=== PATIENT | male | born 1980 | race Caucasian/White ===

== ENCOUNTER → 2020-10-09 | Outpatient (CLI) | payer BC ==
--- NOTE | 2020-10-10 00:03 | MR ---
EXAMINATION TYPE: MR knee RT wo con DATE OF EXAM: 10/09/2020 COMPARISON: None HISTORY: Right inner knee pain, pain behind knee, painful kneecap, locking, and swelling for 5 years. Multiplanar multiecho imaging of the right knee without contrast. The anterior and posterior cruciate ligaments appear intact. There is small knee joint effusion. Ther e is increased signal in the proximal tibia at the base of the tibial spines that is poorly marginate d and measures 1.5 cm. This is consistent with a bone bruise. No fracture line seen. There is also 12 mm rounded area of fluid signal in the posterior aspect of the tibial spines consistent with a degen erative cyst. The collateral ligaments appear intact. There is horizontal tear through the anterior horn of the lat eral meniscus. This extends to the superior surface. There is some increased signal within the box stacker ior horn medial meniscus without extension to the articular surface. The patella is intact. There is some subcutaneous edema over the anterior proximal tibia. IMPRESSION: Horizontal tear anterior horn of the lateral meniscus. There is also vertical tear through the anteri or horn of the lateral meniscus. There is intrasubstance tear posterior horn medial meniscus. No evidence of ligamentous tear. Small joint effusion. Bone bruise and degenerative cyst formation at the base of the tibial spines.
== END | disposition home or self-care (01) ==
LOC: RADMRIMAIN 11:03
PROVIDERS: ATTEND Orthopaedic Surgery
DX: M23.321 Other meniscus derangements, posterior horn of medial meniscus, right knee (principal); M23.341 Other meniscus derangements, anterior horn of lateral meniscus, right knee

== ENCOUNTER → 2021-01-18 | Outpatient (CLI) | payer BC ==
[2021-01-18 10:13] LABS: Basophils # (A) 0.1 k/uL (0-0.2); Basophils % (A) 1 %; Eosinophils # (A) 0.1 k/uL (0-0.7); Eosinophils % (A) 1 %; HCT 48.3 % (39.0-53.0); HGB 15.8 gm/dL (13.0-17.5); Lymphocytes # (A) 1.9 k/uL (1.0-4.8); Lymphocytes % (A) 26 %; MCH 28.5 pg (25.0-35.0); MCHC 32.7 g/dL (31.0-37.0); Mean Platelet Volume 8.5; Monocytes # (A) 0.4 k/uL (0-1.0); Monocytes % (A) 6 %; Neutrophils # (A) 4.7 k/uL (1.3-7.7); Neutrophils % (A) 64 %; Platelet Count 221 k/uL (150-450); RBC 5.56 m/uL (4.30-5.90); RDW 12.9 % (11.5-15.5); WBC 7.4 k/uL (3.8-10.6)
[2021-01-18 10:40] LABS: Potassium 4.4 mmol/L (3.5-5.1)
== END | disposition home or self-care (01) ==
LOC: LABPAT 09:46
PROVIDERS: ATTEND Orthopaedic Surgery
DX: Z01.812 Encounter for preprocedural laboratory examination (principal); M23.91 Unspecified internal derangement of right knee; I10 Essential (primary) hypertension
CPT/HCPCS: 80051; 85025; 93005

== ENCOUNTER 2021-01-30 09:49 | Day surgery (SDC) | payer BC ==
[2021-01-27 14:45] VITALS: BMI 47.3
--- NOTE | 2021-01-29 20:23 | HP ---
HISTORY AND PHYSICAL DATE OF SURGERY: 01/30/2021 Braden Manley is a 40-year-old patient seen with progressive right knee pain. We discussed options for treatment. He elected to proceed with right knee arthroscopy. Consent was obtained. PAST MEDICAL HISTORY: Gastroesophageal reflux disease. PAST SURGICAL HISTORY: Lumbar spine surgery, sinus surgery. DAILY MEDICATIONS: Celebrex. ALLERGIES: NONE. SOCIAL HISTORY: He denies tobacco use. PHYSICAL EVALUATION OF THE RIGHT KNEE: Range of motion is zero to 125. Mild effusion. Tenderness along the medial and lateral joint lines. Positive medial Jaqueline's. Positive lateral Jaqueline's. Ligaments stable. Hip rotation without pain. Distal neurovascular exam intact. Right knee radiographs reveal mild osteoarthritis. MRI right knee revealed lateral meniscal tear. IMPRESSION: Internal derangement of right knee with lateral meniscal tear. PLAN: Right knee arthroscopy with partial meniscectomy and debridement. MMODL / IJN: [id number] /
[~2021-01-30 09:49] MED LIST: LACTATED RINGERS 1,000 ML IV SCH; LIDOCAINE 1% (10MG/ML) FOR IV START INTRADERMA PRN; ONDANSETRON 4 MG/2 ML VIAL IVP ONE; ceFAZolin 3 GM in SODIUM CHLORIDE 0.9% 100 ML IVPB PRN
[2021-01-30] MEDS ORDERED: BUPIVACAINE (PF) 0.25% 30 ML VIAL SQ ONE (11:13)
[2021-01-30] MEDS ORDERED: SUCCINYLCHOLINE CHLORIDE VIAL 200 MG/10 ML VIAL IV ONE (11:16)
[2021-01-30] MEDS ORDERED: PROPOFOL 10 MG/ML 20 ML VIAL IV ONE (11:16)
[2021-01-30] MEDS ORDERED: .fentaNYL (PF) 50 MCG/ML AMP ONE (11:16)
[2021-01-30] MEDS ORDERED: MIDAZOLAM 2 MG/2 ML VIAL ONE (11:16)
[2021-01-30] MEDS: HYDROmorphone 0.5 MG/0.5 ML SYRINGE IVP PRN ×4 (12:17→12:41)
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
[2021-01-30 12:23] VITALS: TEMP 97
[2021-01-30] MEDS ORDERED: KETOROLAC 30 MG/ML 1 ML VIAL ONE (12:32)
[2021-01-30] MEDS ORDERED: KETOROLAC 15 MG/ML 1 ML VIAL IVP ONE (12:34)
[2021-01-30 13:04] VITALS: RESP 18
[2021-01-30] MEDS ORDERED: HYDROcodone/APAP 7.5-325MG 1 EACH TAB ONE (13:16)
[2021-01-30] MEDS ORDERED: HYDROcodone/APAP 7.5-325MG 1 EACH TAB PO ONE (13:17)
[2021-01-30 13:39] VITALS: BP 140/79; PULSE 72
== END 2021-01-30 14:20 | disposition home or self-care (01) ==
LOC: OR 09:49
PROVIDERS: ATTEND Orthopaedic Surgery
DX: S83.281A Other tear of lateral meniscus, current injury, right knee, initial encounter (principal); M94.261 Chondromalacia, right knee; M65.9 Synovitis and tenosynovitis, unspecified; E66.01 Morbid (severe) obesity due to excess calories; K21.9 Gastro-esophageal reflux disease without esophagitis; Z79.899 Other long term (current) drug therapy
CPT/HCPCS: 29879; 29881; 29876; J2250; J0330; J0690; J2405; J3010; J1885; J2704; J1170

== ENCOUNTER → 2021-12-16 | Outpatient (CLI) | payer BC ==
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
== END | disposition home or self-care (01) ==
LOC: SLEEP 14:30
PROVIDERS: ATTEND Internal Medicine Critical Care Medicine
DX: G47.19 Other hypersomnia (principal); E66.9 Obesity, unspecified; M19.90 Unspecified osteoarthritis, unspecified site; R06.83 Snoring
CPT/HCPCS: 99211

== ENCOUNTER 2022-01-05 20:14 | Emergency (ER) | payer BC ==
[2022-01-05 20:23] VITALS: TEMP 99
[2022-01-05 21:43] LABS: Basophils # (A) 0.1 k/uL (0-0.2); Basophils % (A) 1 %; Eosinophils # (A) 0.1 k/uL (0-0.7); Eosinophils % (A) 1 %; HCT 44.8 % (39.0-53.0); HGB 15.3 gm/dL (13.0-17.5); Lymphocytes # (A) 1.9 k/uL (1.0-4.8); Lymphocytes % (A) 16 %; MCH 29.2 pg (25.0-35.0); MCHC 34.1 g/dL (31.0-37.0); MCV 85.6 fL (80.0-100.0); Mean Platelet Volume 9.5; Monocytes # (A) 0.8 k/uL (0-1.0); Monocytes % (A) 6 %; Neutrophils # (A) 9.2 k/uL (1.3-7.7); Neutrophils % (A) 75 %; Platelet Count 230 k/uL (150-450); RBC 5.23 m/uL (4.30-5.90); RDW 12.8 % (11.5-15.5); WBC 12.3 k/uL (3.8-10.6)
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
--- NOTE | 2022-01-05 22:00 | XR ---
EXAMINATION TYPE: XR ankle complete RT DATE OF EXAM: 01/05/2022 COMPARISON: NONE HISTORY: Pain TECHNIQUE: 3 views FINDINGS: There is plantar and Achilles calcaneal spurring. Ankle mortise is anatomic. There is no fr acture nor dislocation. IMPRESSION: Calcaneal spurring. No fracture seen.
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
[2022-01-05 22:21] VITALS: BP 126/88; PULSE 72; RESP 18
[2022-01-05 22:21] LABS: ALT 29 U/L (4-49); African American GFR (CKD) >90 (>60 ml/min/1.73 sqM); Anion Gap 11 mmol/L; Blood Urea Nitrogen 17 mg/dL (9-20); Calcium 9.2 mg/dL (8.4-10.2); Carbon Dioxide 23 mmol/L (22-30); Chloride 103 mmol/L (98-107); Glucose 81 mg/dL (74-99); Non-African American GFR(CKD) >90 (>60 ml/min/1.73 sqM); Sodium 137 mmol/L (137-145); Total Bilirubin 0.7 mg/dL (0.2-1.3)
[2022-01-05 22:29] LABS: AST 42 U/L (17-59); Albumin 4.6 g/dL (3.5-5.0); Alkaline Phosphatase 89 U/L (38-126); Potassium 4.7 mmol/L (3.5-5.1); Total Protein 7.6 g/dL (6.3-8.2)
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
== END 2022-01-05 23:09 | disposition home or self-care (01) ==
LOC: EC 20:14
DX: T21.21XA Burn of second degree of chest wall, initial encounter (principal); J68.0 Bronchitis and pneumonitis due to chemicals, gases, fumes and vapors; Z79.899 Other long term (current) drug therapy
CPT/HCPCS: 36415; 70450; 71046; 72110; 72125; 80053; 82375; 85025; 99285

== ENCOUNTER → 2022-08-11 | Outpatient (CLI) | payer BC ==
--- NOTE | 2022-08-11 15:56 | P.PN ---
Progress Note - Text Progress Note Date: 08/11/22 39-year-old male patient coming in for a compliance check regarding obstructive sleep apnea. The patient was diagnosed having Moderate to severe obstructive sleep apnea with an AHI of 23 and the patient was given a CPAP machine a pressure of 15 cm of water. Note that the patient also has undergone a previous UPPP procedure. The patient was symptomatic from his disease. The patient started using his CPAP and currently is very compliant. Based on the compliance data that has been collected between 07/12/2022 and 08/10/2022, the patient has used the machine more than 4 hours 90% of the time. The patient is averaging about 7 hours and 12 minutes of CPAP use per night. His AHI is down to 0.51 on treatment. His leak site quite elevated at 65 L. His currently using a fullface mask and is also using the air fit N 20 nasal mask. The patient is improved significantly. No major hypersomnia or sleepiness during the day. He seems to be committed to long-term CPAP therapy. Is also committed to losing weight. His sleep quality is improved. [place] subsided. He seems to much more awake. He does not fall asleep during day-to-day activities and he is feeling good for now and use quite content with the treatment. His current vital signs are as follows his blood pressure is 136/87 with a pulse of 68 and the respiration of 16 and his [place] score is down to 2. Saturations 97% on room air oxygen and the weight is 365 pounds. The patient appeared well nourished and normally developed. Vital signs as documented. Head exam is unremarkable. No scleral icterus or corneal arcus noted. Neck is without jugular venous distension, thyromegaly, or carotid bruits. Carotid upstrokes are brisk bilaterally. Lungs are clear to auscultation and percussion. Cardiac exam reveals the PMI to be normally sized and situated. Rhythm is regular. First and second heart sounds normal. No murmurs, rubs or gallops. Abdominal exam reveals normal bowel sounds, no masses, no organomegaly and no aortic enlargement. Extremities are nonedematous and both femoral and pedal pulses are normal.Examination of the skin revealed no evidence of significant rashes, suspicious appearing nevi or other concerning lesions.Neurologically, the patient is awake and alert and the patient does not have any focal neurological deficit. Cranial nerves are essentially intact. assessment Symptomatic obstructive sleep apnea with an AHI of 23 and the patient is currently on CPAP at a pressure of 15 cm of water. Previous UPPP for obstructive sleep apnea. Migraines Chronic hypersomnia improved and the patient's [place] score is down to 2 Obesity, Body mass index is 54.7 Degenerative arthritis Plan We'll proceed with CPAP therapy. We'll continue treatment as the patient is committed. We'll make some adjustments as the patient is having excessive leaks. I'm going to switch this patient today APAP mode pressures of 7/14 cm of water and will evaluate him in 6 months time to obtain a P95th percentile pressure and decide accordingly whether to keep him on APAP or change in to a fixed CPAP pressure. I offered them the dreamware nasal mask as an alternative for his current mask. He was quite excited about it. He is also into was then losing weight. We'll continue to follow.
== END ==
LOC: 3 N SLEEP 15:04
PROVIDERS: ATTEND Internal Medicine Critical Care Medicine
DX: G47.33 Obstructive sleep apnea (adult) (pediatric) (principal); Z99.89 Dependence on other enabling machines and devices; G43.909 Migraine, unspecified, not intractable, without status migrainosus; E66.9 Obesity, unspecified; Z68.43 Body mass index [BMI] 50.0-59.9, adult; M19.90 Unspecified osteoarthritis, unspecified site
CPT/HCPCS: 99212

== ENCOUNTER → 2023-02-09 | Outpatient (CLI) | payer BC ==
--- NOTE | 2023-02-09 16:26 | P.PN ---
Progress Note - Text Progress Note Date: 02/09/23 This is a 41-year-old male patient is coming in for a follow-up regarding his JAYDEN treatment. The patient was diagnosed having symptomatic OBSTRUCTIVE sleep apnea which is of a moderate in severity with an AHI of 23. The patient has undergone previous UPPP and the patient was being treated with a CPAP pressure of 15 cm of water. During his last evaluation, switch this patient for an APAP mode and I set him to a pressure setting of 7/14 cm of water. I also switched him to a dreamware under the nose nasal mask. The patient is feeling great. He is unfortunately gaining weight. His current weight is up to 386 pounds. Nevertheless, his JAYDEN treatment is very successful. Based on a 30 day compliancy, the patient has been averaging on 6.8 hours of CPAP use per night. Overall CPAP compliance is more than 80%. His leak is in order of 31 L/m and his AHI is down to 0.5. His average pressure delivered by the CPAP machines around 12.8 cm of water. No snoring. No sleep fragmentation. No hypersomnia or sleepiness. No other new complaints otherwise for now BP is 124/83 with a pulse of 78 and the respiration of 16 with a weight of 386. Temperature is 98.3. For score is at 2. Weight is 386. Gen. appearance the patient is calm and comfortable, obese, not in acute distress. The patient is a Mallampati class IV with significant crowding of posterior pharynx.The patient appeared well nourished and normally developed. Vital signs as documented. Head exam is unremarkable. No scleral icterus or corneal arcus noted. Neck is without jugular venous distension, thyromegaly, or carotid bruits. Carotid upstrokes are brisk bilaterally. Lungs are clear to auscultation and percussion. Cardiac exam reveals the PMI to be normally sized and situated. Rhythm is regular. First and second heart sounds normal. No murmurs, rubs or gallops. Abdominal exam reveals normal bowel sounds, no masses, no organomegaly and no aortic enlargement. Extremities are nonedematous and both femoral and pedal pulses are normal.Examination of the skin revealed no evidence of significant rashes, suspicious appearing nevi or other concerning lesions.Neurologically, the patient is awake and alert and the patient does not have any focal neurological deficit. Cranial nerves are essentially intact. Assessment Symptomatic JAYDEN with an AHI of 23. The patient is undergoing successful APAP therapy pressures of 7/14 cm of water. The patient undergone previous UPPP. He felt surgical intervention and the patient is currently doing very well on CPAP therapy. Obesity with interval weight gain. Current body weight is up to 386 pounds Migraines, currently inactive and stable Degenerative arthritis Plan Encourage weight loss and the patient is going to work with his primary care regarding medical weight loss. The patient will continue CPAP therapy the same pressures of 7/14 cm of water. The mask is going to be renewed and the patient is going to be maintained on a dreamware under the nose mask. This will be a medium wide size. Treatment is very successful. The patient is compliant. The patient will see me back in a year's time and follow-up.
== END ==
LOC: 3 N SLEEP 15:32
PROVIDERS: ATTEND Internal Medicine Critical Care Medicine
DX: G47.33 Obstructive sleep apnea (adult) (pediatric) (principal); G43.909 Migraine, unspecified, not intractable, without status migrainosus; E66.9 Obesity, unspecified; M19.90 Unspecified osteoarthritis, unspecified site
CPT/HCPCS: 99212

== ENCOUNTER 2023-10-24 09:47 | Observation (INO) | payer BC ==
--- NOTE | 2023-10-24 10:07 | ED ---
General Adult HPI - General Chief complaint: Chest Pain Stated complaint: Chest pain,KASANDRA Time Seen by Provider: 10/24/23 09:53 Source: patient, family, RN notes reviewed Mode of arrival: ambulatory Limitations: no limitations - History of Present Illness Initial comments: Patient is a 42-year-old male present to the emergency department with concerns with chest discomfort. Symptoms started yesterday evening. Family's Apple Watch showed heart rate up to 147 with concerns for A-fib. No history of A-fib. Patient states discomfort is mild at this time. Patient does have associated palpitations and dyspnea. No nausea or diaphoresis. No leg swelling or calf tenderness. No fever - Related Data Home Medications Medication Instructions Recorded Confirmed Celecoxib [CeleBREX] 100 mg PO DAILY 10/24/23 10/24/23 Fluconazole [Diflucan] 150 mg PO Q3D 10/24/23 10/24/23 Multivitamins, Thera [Multivitamin 1 tab PO DAILY 10/24/23 10/24/23 (formulary)] Omeprazole [PriLOSEC] 20 mg PO DAILY PRN 10/24/23 10/24/23 Allergies Allergy/AdvReac Type Severity Reaction Status Date / Time No Known Allergies Allergy Verified 10/24/23 11:49 Review of Systems ROS Statement: Those systems with pertinent positive or pertinent negative responses have been documented in the HPI. ROS Other: All systems not noted in ROS Statement are negative. Constitutional: Denies: fever Eyes: Denies: eye pain ENT: Denies: ear pain Respiratory: Reports: as per HPI, dyspnea. Denies: cough Cardiovascular: Reports: as per HPI, chest pain, palpitations Endocrine: Denies: fatigue Gastrointestinal: Denies: abdominal pain Genitourinary: Denies: dysuria Musculoskeletal: Denies: back pain Skin: Denies: rash Neurological: Denies: weakness Past Medical History Additional Past Medical History / Comment(s): Obesity, previous history of UPPP, degenerative arthritis, history of migraines, previous history of Covid 19 infection Additional Past Surgical History / Comment(s): UPPP, microdiscectomy, right arthroscopic surgery for meniscal repair Past Psychological History: No Psychological Hx Reported General Exam Limitations: no limitations General appearance: alert, in no apparent distress Head exam: Present: normocephalic Eye exam: Present: normal appearance Neck exam: Present: normal inspection Respiratory exam: Present: normal lung sounds bilaterally Cardiovascular Exam: Present: tachycardia, irregular rhythm, normal heart sounds Expanded Peripheral pulses: 2+: Radial (R), Radial (L), Dorsalis Pedis (R), Dorsalis Pedis (L) GI/Abdominal exam: Present: soft. Absent: tenderness Extremities exam: Present: normal inspection. Absent: pedal edema, calf tenderness Neurological exam: Present: alert Psychiatric exam: Present: normal affect, normal mood Skin exam: Present: normal color Course Vital Signs 10/24/23 10/24/23 10/24/23 09:48 10:11 10:30 Temperature 98.3 F Pulse Rate 92 123 H 172 H Pulse Rate [ 123 H [place]ry[place] ] Respiratory 16 20 18 Rate Blood Pressure 119/90 119/93 130/86 O2 Sat by Pulse 99 97 96 Oximetry 10/24/23 10/24/23 10:57 12:05 Temperature Pulse Rate 150 H 94 Pulse Rate [ [place] ] Respiratory 18 18 Rate Blood Pressure 128/79 118/85 O2 Sat by Pulse 96 97 Oximetry EKG Findings - EKG Results: EKG: interpreted by ERMD (Left axis. Q wave V1. No acute ST change.) EKG shows: tachycardia, atrial fibrillation Medical Decision Making - Medical Decision Making Was pt. sent in by a medical professional or institution (, PA, SENIOR LIVING ADVISOR, urgent care, hospital, or [facility]...) When possible be specific @ -No Did you speak to anyone other than the patient for history (EMS, parent, family, police, friend...)? What history was obtained from this source @ - is present and helps provide history including heart rate on the Apple Watch Did you review nursing and triage notes (agree or disagree)? Why? @ -I reviewed and agree with nursing and triage notes Were old charts reviewed (outside hosp., previous admission, EMS record, old EKG, old radiological studies, urgent care reports/EKG's, [facility] records)? Report findings @ -No old charts were reviewed Differential Diagnosis (chest pain, altered mental status, abdominal pain women, abdominal pain men, vaginal bleeding, weakness, fever, dyspnea, syncope, headache, dizziness, GI bleed, back pain, seizure, CVA, palpatations, mental health, musculoskeletal)? @ -Differential Palpitations Ventricular arrhythmias, atrial arrhythmias, myocardial infarction, anemia, thyrotoxicosis, electrolyte imbalance, hypokalemia, pulmonary embolism, pulmo nary disease, drugs, alcohol, anxiety, stress.... This is not meant to be an all-inclusive list. EKG interpreted by me (3pts min.). @ -As above X-rays interpreted by me (1pt min.). @ -Chest x-ray shows mild interstitial changes CT interpreted by me (1pt min.). @ -None done U/S interpreted by me (1pt. min.). @ -None done What testing was considered but not performed or refused? (CT, X-rays, U/S, labs)? Why? @ -None What meds were considered but not given or refused? Why? @ -None Did you discuss the management of the patient with other professionals (professionals i.e. , PA, SENIOR LIVING ADVISOR, lab, RT, psych nurse, social work supervisor, vacuum evaporation operator, teacher, business development officer, family independence case manager)? Give summary @ -Case was discussed with Dr. Cabrera who will admit covering for Dr. Sanchez Was smoking cessation discussed for >3mins.? @ -No Was critical care preformed (if so, how long)? @ -31 minutes critical care time Were there social determinants of health that impacted care today? How? (Homelessness, low income, unemployed, alcoholism, drug addiction, transportation, low edu. Level, literacy, decrease access to med. care, snf, rehab)? @ -No Was there de-escalation of care discussed even if they declined (Discuss DNR or withdrawal of care, Hospice)? DNR status @ -No What co-morbidities impacted this encounter? (DM, HTN, Smoking, COPD, CAD, Cancer, CVA, ARF, Chemo, Hep., AIDS, mental health diagnosis, sleep apnea, morbid obesity)? @ -None Was patient admitted / discharged? Hospital course, mention meds given and route, prescriptions, significant lab abnormalities, going to OR and other pertinent info. @ -Patient presents with new onset A-fib with RVR. Heparin and Cardizem drips started. Patient reevaluated and updated. Patient will be admitted with cardiac consult. Admission orders written. Undiagnosed new problem with uncertain prognosis? @ -No Drug Therapy requiring intensive monitoring for toxicity (Heparin, Nitro, Insulin, Cardizem)? @ -On Cardizem drip. Heparin drip Were any procedures done? @ -No Diagnosis/symptom? @ -New onset A-fib with RVR Acute, or Chronic, or Acute on Chronic? @ -Default Uncomplicated (without systemic symptoms) or Complicated (systemic symptoms)? @ -Default Side effects of treatment? @ -No Exacerbation, Progression, or Severe Exacerbation? @ -No Poses a threat to life or bodily function? How? (Chest pain, [place], [place], pneumonia, PE, COPD, DKA, ARF, appy, cholecystitis, CVA, Diverticulitis, Homicidal, Suicidal, threat to staff... and all critical care pts) @ -Threat to cardiac function - Lab Data Result diagrams: 10/24/23 10:27 10/24/23 10: Lab Results 10/24/23 10/24/23 10/24/23 Range/Units 10:27 10:27 10:27 WBC 9.4 (3.8-10.6) k/uL RBC 5.89 (4.30-5.90) m/uL Hgb 16.5 (13.0-17.5) gm/dL Hct 50.5 (39.0-53.0) % MCV 85.8 (80.0-100.0) fL MCH 28.0 (25.0-35.0) pg MCHC 32.7 (31.0-37.0) g/dL RDW 13.4 (11.5-15.5) % Plt Count 261 (150-450) k/uL MPV 8.5 Neutrophils % 66 % Lymphocytes % 22 % Monocytes % 9 % Eosinophils % 1 % Basophils % 0 % Neutrophils # 6.2 (1.3-7.7) k/uL Lymphocytes # 2.1 (1.0-4.8) k/uL Monocytes # 0.8 (0-1.0) k/uL Eosinophils # 0.1 (0-0.7) k/uL Basophils # 0.0 (0-0.2) k/uL PT 9.7 L (10.0-12.5) sec INR 0.9 (<1.2) APTT 26.1 (22.0-30.0) sec Sodium 142 (137-145) mmol/L Potassium 4.6 (3.5-5.1) mmol/L Chloride 111 H (98-107) mmol/L Carbon Dioxide 24 (22-30) mmol/L Anion Gap 7 mmol/L BUN 18 (9-20) mg/dL Creatinine 0.83 (0.66-1.25) mg/dL Est GFR (CKD-EPI)AfAm >90 (>60 ml/min/1.73 sqM) Est GFR (CKD-EPI)NonAf >90 (>60 ml/min/1.73 sqM) Glucose 112 H (74-99) mg/dL Calcium 9.4 (8.4-10.2) mg/dL Magnesium 2.0 (1.6-2.3) mg/dL Total Bilirubin 0.5 (0.2-1.3) mg/dL AST 28 (17-59) U/L ALT 26 (4-49) U/L Alkaline Phosphatase 88 (38-126) U/L Troponin I (0.000-0.034) ng/mL Total Protein 7.2 (6.3-8.2) g/dL Albumin 4.4 (3.5-5.0) g/dL TSH 5.630 H (0.465-4.680) mIU/L Free T4 1.23 (0.78-2.19) ng/dL 10/24/23 Range/Units 10:27 WBC (3.8-10.6) k/uL RBC (4.30-5.90) m/uL Hgb (13.0-17.5) gm/dL Hct (39.0-53.0) % MCV (80.0-100.0) fL MCH (25.0-35.0) pg MCHC (31.0-37.0) g/dL RDW (11.5-15.5) % Plt Count (150-450) k/uL MPV Neutrophils % % Lymphocytes % % Monocytes % % Eosinophils % % Basophils % % Neutrophils # (1.3-7.7) k/uL Lymphocytes # (1.0-4.8) k/uL Monocytes # (0-1.0) k/uL Eosinophils # (0-0.7) k/uL Basophils # (0-0.2) k/uL PT (10.0-12.5) sec INR (<1.2) APTT (22.0-30.0) sec Sodium (137-145) mmol/L Potassium (3.5-5.1) mmol/L Chloride (98-107) mmol/L Carbon Dioxide (22-30) mmol/L Anion Gap mmol/L BUN (9-20) mg/dL Creatinine (0.66-1.25) mg/dL Est GFR (CKD-EPI)AfAm (>60 ml/min/1.73 sqM) Est GFR (CKD-EPI)NonAf (>60 ml/min/1.73 sqM) Glucose (74-99) mg/dL Calcium (8.4-10.2) mg/dL Magnesium (1.6-2.3) mg/dL Total Bilirubin (0.2-1.3) mg/dL AST (17-59) U/L ALT (4-49) U/L Alkaline Phosphatase (38-126) U/L Troponin I <0.012 (0.000-0.034) ng/mL Total Protein (6.3-8.2) g/dL Albumin (3.5-5.0) g/dL TSH (0.465-4.680) mIU/L Free T4 (0.78-2.19) ng/dL Critical Care Time Critical Care Time: Yes Disposition Clinical Impression: Atrial fibrillation with RVR Disposition: ADMITTED IP TO THIS HOSP Is patient prescribed a controlled substance at d/c from ED?: No Referrals: Sascha Cochran MD [Primary Care Provider] - 1-2 days Time of Disposition: 13:04
[2023-10-24] MEDS: ASPIRIN 81 MG PO STA (10:29)
[2023-10-24] MEDS: DILTIAZEM 125 MG in SODIUM CHLORIDE 0.9% 100 ML IV SCH (10:29)
[2023-10-24 10:34] LABS: Basophils % (A) 0 %; Eosinophils # (A) 0.1 k/uL (0-0.7); Eosinophils % (A) 1 %; HCT 50.5 % (39.0-53.0); HGB 16.5 gm/dL (13.0-17.5); Lymphocytes # (A) 2.1 k/uL (1.0-4.8); Lymphocytes % (A) 22 %; MCHC 32.7 g/dL (31.0-37.0); MCV 85.8 fL (80.0-100.0); Mean Platelet Volume 8.5; Monocytes # (A) 0.8 k/uL (0-1.0); Monocytes % (A) 9 %; Neutrophils # (A) 6.2 k/uL (1.3-7.7); Neutrophils % (A) 66 %; Platelet Count 261 k/uL (150-450); RBC 5.89 m/uL (4.30-5.90); RDW 13.4 % (11.5-15.5); WBC 9.4 k/uL (3.8-10.6)
[2023-10-24 10:48] LABS: ALT 26 U/L (4-49); AST 28 U/L (17-59); African American GFR (CKD) >90 (>60 ml/min/1.73 sqM); Albumin 4.4 g/dL (3.5-5.0); Alkaline Phosphatase 88 U/L (38-126); Anion Gap 7 mmol/L; Blood Urea Nitrogen 18 mg/dL (9-20); Calcium 9.4 mg/dL (8.4-10.2); Carbon Dioxide 24 mmol/L (22-30); Chloride 111 mmol/L (98-107); Glucose 112 mg/dL (74-99); Non-African American GFR(CKD) >90 (>60 ml/min/1.73 sqM); Potassium 4.6 mmol/L (3.5-5.1); Sodium 142 mmol/L (137-145); Total Bilirubin 0.5 mg/dL (0.2-1.3); Total Protein 7.2 g/dL (6.3-8.2)
[2023-10-24 10:59] LABS: INR 0.9 (<1.2); Partial Thromboplastin Time 26.1 sec (22.0-30.0); Prothrombin Time 9.7 sec (10.0-12.5)
[2023-10-24] MEDS: DILTIAZEM DRIP BOLUS FROM BAG 1 MG SOLN IV ONE (10:59)
--- NOTE | 2023-10-24 11:45 | XR ---
EXAMINATION TYPE: XR chest 2V DATE OF EXAM: 10/24/2023 COMPARISON: 01/05/2022 HISTORY: 42-year-old male dysrhythmia TECHNIQUE: PA and lateral views FINDINGS: Heart upper limits of normal in size. Interstitial and vascular prominence without consolidation or p leural effusion. IMPRESSION: Interstitial and vascular prominence. Correlate to exclude mild pulmonary vascular congestion.
[2023-10-24 11:57] LABS: T4, Free (Free Thyroxine) 1.23 ng/dL (0.78-2.19)
[2023-10-24] MEDS ORDERED: PANTOPRAZOLE 40 MG TABLET PO PRN ×2 (12:58→13:01)
[2023-10-24] MEDS: HEPARIN SODIUM 1,000 UN/ML (10ML VL) IV ONE (13:21)
[2023-10-24] MEDS: HEPARIN SOD,PORK IN 0.45% NACL 25,000 UNIT in 0.45% NACL 1 250ML.BAG IV SCH (13:24)
--- NOTE | 2023-10-24 15:34 | P.HPIM ---
History of Present Illness H&P Date: 10/24/23 Patient is a 42-year-old male with history of JAYDEN on CPAP presenting with palpitations and chest heaviness. He claims that he was in his usual state of health, started noticing chest heaviness while sitting on a chair last night. He claims that it is all over his chest, 5 out of 10, comes and goes. He also noted that he had rapid heart rate, irregular. He denies any lightheadedness, s hortness of breath, abdominal pain, urinary or bowel complaints. He denies any recent travel history. Family history of heart disease on maternal side. He is also had a rash on his right upper extremity concerning for ringworm, he was prescribed oral antifungals outpatient. He is only taken 1 dose so far. In the ED, temperature 98.3, pulse 123, respiratory 20, blood pressure 119/93, saturating at 97% on room air. WBC 9.4, hemoglobin 16.5, platelet 261, INR 0.9, APTT 26.1, sodium 142, potassium 4.6, creatinine 0.83, magnesium 2, TSH 5.63, free T41.23, troponin negative. EKG independently interpreted, atrial fibrillation with RVR. Chest x-ray independently interpreted, shows no opaciti es. Started on Cardizem drip in the ED, as well as heparin drip. Cardiology consulted. Pertinent positives and negatives as discussed in HPI, a complete review of systems was performed and all other systems are negative. Patient seen and examined at bedside. Vital signs reviewed General: nontoxic, no distress, appears at stated age, morbid obesity Derm: warm, dry, right upper extremity posterior aspect raised erythematous circular maculopapular rash with central clearing Head: atraumatic, normocephalic, symmetric Eyes: EOMI, no lid lag, anicteric sclera, pupils equal round reactive to light ENT: Nose and ears atraumatic Neck: No thyromegaly, supple Mouth: no lip lesion, mucus membranes moist Cardiovascular: S1S2 irregular, no murmur, no edema Lungs: clear to auscultation bilateral, no rhonchi, no rales, no wheeze, no accessory muscle use Abdominal: soft, nontender to palpation, no guarding, no appreciable organomegaly Ext: no gross muscle atrophy, muscle strength muscle strength 5 out of 5 in all 4 extremities, no contractures Neuro: CN II-XII grossly intact Psych: Alert, oriented, appropriate affect Assessment/Plan: Active: Atrial fibrillation with RVR -Continue telemetry monitoring -Echocardiogram pending -Continue Cardizem drip at 5 mg/h, titrate up if needed, monitor blood pressure closely -Continue heparin drip, monitor APTT and daily CBC -CHADSVASc score of 0 -Cardiology consulted, may benefit from cardioversion JAYDEN -Continue CPAP Tinea corporis -terbinafine 1% topical twice daily Morbid obesity, BMI 51.5 -Outpatient structured weight loss program The patient is admitted with an anticipated less than 2 midnight stay as observation status for evaluation of A-fib RVR. Surrogate decision-maker: Spouse CODE STATUS: Full code DVT prophylaxis: Heparin drip Anticipated discharge date: Pending clinical course Anticipated discharge place: Pending clinical course A total of 55 minutes was spent on the care of this complex patient more than 50% of the time was spent in counseling and care coordination. Past Medical History Additional Past Medical History / Comment(s): Obesity, previous history of UPPP, degenerative arthritis, history of migraines, previous history of Covid 19 infection Additional Past Surgical History / Comment(s): UPPP, microdiscectomy, right arthroscopic surgery for meniscal repair Past Psychological History: No Psychological Hx Reported Medications and Allergies Home Medications Medication Instructions Recorded Confirmed Type Celecoxib [CeleBREX] 100 mg PO DAILY 10/24/23 10/24/23 History Fluconazole [Diflucan] 150 mg PO Q3D 10/24/23 10/24/23 History Multivitamins, Thera [Multivitamin 1 tab PO DAILY 10/24/23 10/24/23 History (formulary)] Omeprazole [PriLOSEC] 20 mg PO DAILY PRN 10/24/23 10/24/23 History Allergies Allergy/AdvReac Type Severity Reaction Status Date / Time No Known Allergies Allergy Verified 10/24/23 11:49 Physical Exam Vitals: Vital Signs Temp Pulse Pulse Resp BP Pulse Ox 10/24/23 14:14 97.8 F 106 H 18 115/79 98 10/24/23 13:17 98 18 115/91 97 10/24/23 12:05 94 18 118/85 97 10/24/23 10:57 150 H 18 128/79 96 10/24/23 10:30 172 H 18 130/86 96 08/25/24 10:11 123 H 123 H 20 119/93 97 10/24/23 09:48 98.3 F 92 16 119/90 99 Intake and Output 10/23/23 10/24/23 10/24/23 22:59 06:59 14:59 Other: Weight 172.365 kg Results CBC & Chem 7: 10/24/23 10:27 10/24/23 10:27 Labs: Abnormal Lab Results - Last 24 Hours (Table) 10/24/23 10/24/23 Range/Units 10:27 10:27 PT 9.7 L (10.0-12.5) sec Chloride 111 H (98-107) mmol/L Glucose 112 H (74-99) mg/dL TSH 5.630 H (0.465-4.680) mIU/L
[2023-10-24] MEDS: HEPARIN SODIUM 1,000 UN/ML (10ML VL) IV PRN (19:34)
[2023-10-24] MEDS: TERBINAFINE 1% CREAM 15 GM TUBE TOPICAL SCH (21:50)
[2023-10-25 02:31] LABS: INR 0.9 (<1.2); Prothrombin Time 10.4 sec (10.0-12.5)
[2023-10-25 02:32] LABS: Basophils # (A) 0.1 k/uL (0-0.2); Basophils % (A) 1 %; Eosinophils # (A) 0.1 k/uL (0-0.7); Eosinophils % (A) 1 %; HCT 45.4 % (39.0-53.0); HGB 14.9 gm/dL (13.0-17.5); Lymphocytes # (A) 2.9 k/uL (1.0-4.8); Lymphocytes % (A) 35 %; MCH 28.4 pg (25.0-35.0); MCHC 32.9 g/dL (31.0-37.0); MCV 86.3 fL (80.0-100.0); Mean Platelet Volume 8.7; Monocytes # (A) 0.6 k/uL (0-1.0); Monocytes % (A) 7 %; Neutrophils # (A) 4.3 k/uL (1.3-7.7); Neutrophils % (A) 53 %; Platelet Count 229 k/uL (150-450); RBC 5.25 m/uL (4.30-5.90); RDW 13.4 % (11.5-15.5); WBC 8.2 k/uL (3.8-10.6)
[2023-10-25 08:10] LABS: African American GFR (CKD) >90 (>60 ml/min/1.73 sqM); Anion Gap 8 mmol/L; Blood Urea Nitrogen 16 mg/dL (9-20); Calcium 9.2 mg/dL (8.4-10.2); Carbon Dioxide 23 mmol/L (22-30); Chloride 108 mmol/L (98-107); Glucose 103 mg/dL (74-99); Magnesium 1.9 mg/dL (1.6-2.3); Non-African American GFR(CKD) >90 (>60 ml/min/1.73 sqM); Potassium 4.2 mmol/L (3.5-5.1); Sodium 139 mmol/L (137-145)
[2023-10-25] MEDS ORDERED: ASPIRIN 325 MG TAB PO SCH (09:00)
[2023-10-25] MEDS: MELOXICAM 7.5 MG TAB PO SCH (09:10)
[2023-10-25] MEDS: MULTIVITAMINS, THERA 1 EACH TAB PO SCH (09:11)
--- NOTE | 2023-10-25 11:22 | P.CRDCN ---
History of Present Illness Consult date: 10/25/23 History of present illness: Patient is a 42-year-old male with PMH of JAYDEN with CPAP who presented to the ED Wednesday morning for racing and fluttering heart, chest tightness, difficulty taking a deep breath, and Apple Watch showing Afib. He states this is the first time experiencing this type of chest tightness but endorses previous episodes of feeling like his heart is pausing. He does not take any medications at home regularly but began taking fluconazole for ringworm on Wednesday. Review of Systems General: Denies fever, chills, weight changes. CV: Endorses palpitations, chest tightness. Resp: Endorses SOB; denies wheezing and cough. GI: Denies nausea, vomiting, diarrhea, constipation, hematochezia, melena. : Denies hematuria, dysuria, frequency, urgency. MSK: Denies myalgias. Extremities: Denies edema. Neuro: Denies headache, lightheadedness. Past Medical History Past Medical History: Sleep Apnea/CPAP/BIPAP Additional Past Medical History / Comment(s): Obesity, previous history of UPPP, degenerative arthritis, history of migraines, previous history of Covid 19 infection History of Any Multi-Drug Resistant Organisms: None Reported Additional Past Surgical History / Comment(s): UPPP, microdiscectomy, right arthroscopic surgery for meniscal repair Past Psychological History: No Psychological Hx Reported - Past Family History Mother Additional Family Medical History / Comment(s): uncle on moms side-- [place]. Medications and Allergies Home Medications Medication Instructions Recorded Confirmed Type Celecoxib [CeleBREX] 100 mg PO DAILY 10/24/23 10/24/23 History Fluconazole [Diflucan] 150 mg PO Q3D 10/24/23 10/24/23 History Multivitamins, Thera [Multivitamin 1 tab PO DAILY 10/24/23 10/24/23 History (formulary)] Omeprazole [PriLOSEC] 20 mg PO DAILY PRN 10/24/23 10/24/23 History Allergies Allergy/AdvReac Type Severity Reaction Status Date / Time No Known Allergies Allergy Verified 10/24/23 11:49 Physical Exam Vitals: Vital Signs Temp Pulse Pulse Resp BP BP Pulse Ox 10/25/23 09:15 95 10/25/23 03:11 68 18 102/67 95 10/24/23 23:16 71 16 108/70 96 10/24/23 19:41 98.0 F 69 18 123/75 98 10/24/23 16:05 98 10/24/23 15:22 98.2 F 89 18 110/77 97 10/24/23 14:14 97.8 F 106 H 18 115/79 98 10/24/23 13:17 98 18 115/91 97 10/24/23 12:05 94 18 118/85 97 10/24/23 10:57 150 H 18 128/79 96 10/24/23 10:30 172 H 18 130/86 96 10/24/23 10:11 123 H 123 H 20 119/93 97 Intake and Output 10/24/23 10/25/23 10/25/23 22:59 06:59 14:59 Intake Total 839.649 525.132 120 Balance 839.649 525.132 120 Intake: Intake, IV Titration 59.649 285.132 Amount Diltiazem 125 mg In 101.083 Sodium Chloride 0.9% 100 ml @ 5 MG/HR 5 mls/hr IV .Q24H GERA Rx#:[id number] Heparin Sod,Pork in 0.45% 59.649 184.049 NaCl 25,000 unit In 0.45 % NaCl 1 250ml.bag @ 5.8 UNITS/KG/HR 9.997 mls/hr IV .Q24H GERA Rx#: [id number] Oral 780 240 120 Other: # Voids 2 Weight 172.365 kg 173.1 kg Vitals stable. General: No acute distress. Head: Atraumatic. CV: Regular rate and rhythm, S1S2 present. Lungs: Bilateral breath sounds present. Abdomen: Soft, nontender. Extremities: No edema present. Results 10/25/23 01:28 10/25/23 06:52 Cardiac Enzymes 10/24/23 10/24/23 10/24/23 Range/Units 10:27 10:27 14:21 AST 28 (17-59) U/L Troponin I <0.012 <0.012 (0.000-0.034) ng/mL 10/24/23 Range/Units 18:53 AST (17-59) U/L Troponin I <0.012 (0.000-0.034) ng/mL Coagulation 10/24/23 10/24/23 10/25/23 Range/Units 10:27 18:53 01:28 PT 9.7 L 10.4 (10.0-12.5) sec APTT 26.1 26.6 (22.0-30.0) sec 10/25/23 10/25/23 Range/Units 01:28 06:52 PT (10.0-12.5) sec APTT 35.1 H 50.2 H (22.0-30.0) sec CBC 10/24/23 10/25/23 Range/Units 10:27 01:28 WBC 9.4 8.2 (3.8-10.6) k/uL RBC 5.89 5.25 (4.30-5.90) m/uL Hgb 16.5 14.9 (13.0-17.5) gm/dL Hct 50.5 45.4 (39.0-53.0) % Plt Count 261 229 (150-450) k/uL Comprehensive Metabolic Panel 10/24/23 10/25/23 Range/Units 10:27 06:52 Sodium 142 139 (137-145) mmol/L Potassium 4.6 4.2 (3.5-5.1) mmol/L Chloride 111 H 108 H (98-107) mmol/L Carbon Dioxide 24 23 (22-30) mmol/L BUN 18 16 (9-20) mg/dL Creatinine 0.83 0.86 (0.66-1.25) mg/dL Glucose 112 H 103 H (74-99) mg/dL Calcium 9.4 9.2 (8.4-10.2) mg/dL AST 28 (17-59) U/L ALT 26 (4-49) U/L Alkaline Phosphatase 88 (38-126) U/L Total Protein 7.2 (6.3-8.2) g/dL Albumin 4.4 (3.5-5.0) g/dL Current Medications Generic Name Dose Route Start Last Admin Trade Name Freq PRN Reason Stop Dose Admin Heparin Sodium (Porcine) 0 unit 10/24/23 13:04 10/25/23 02:48 Heparin Sodium 1,000 Un/Ml (10ml Vl) IV 4,000 unit PER PROTOCOL PRN Administration Low PTT Protocol Diltiazem HCl 125 mg/ Sodium 125 mls @ 5 mls/hr 10/24/23 10:15 10/25/23 06:42 Chloride IV 5 mg/hr .Q24H GERA 5 mls/hr Administration 5 MG/HR Heparin Sodium/Sodium Chloride 250 mls @ 9.997 mls/hr 10/24/23 13:15 10/25/23 06:38 25,000 unit/ Sodium Chloride IV 10.8 units/kg/hr .Q24H GERA 18.615 mls/hr Administration Protocol 5.8 UNITS/KG/HR Meloxicam 7.5 mg 10/25/23 09:00 10/25/23 09:10 Meloxicam 7.5 Mg Tab PO 7.5 mg DAILY GERA Administration Multivitamins 1 each 10/25/23 09:00 10/25/23 09:11 Multivitamins, Thera 1 Each Tab PO 1 each DAILY GERA Administration Pantoprazole Sodium 40 mg 10/24/23 13:01 Pantoprazole 40 Mg Tablet PO DAILY PRN GI Upset Terbinafine HCl 1 applic 10/24/23 21:00 10/25/23 09:12 Terbinafine 1% Cream 15 Gm Tube TOPICAL 1 applic BID GERA Administration Protocol Intake and Output 10/24/23 10/25/23 10/25/23 22:59 06:59 14:59 Intake Total 839.649 525.132 120 Balance 839.649 525.132 120 Intake: Intake, IV Titration 59.649 285.132 Amount Diltiazem 125 mg In 101.083 Sodium Chloride 0.9% 100 ml @ 5 MG/HR 5 mls/hr IV .Q24H GERA Rx#:[id number] Heparin Sod,Pork in 0.45% 59.649 184.049 NaCl 25,000 unit In 0.45 % NaCl 1 250ml.bag @ 5.8 UNITS/KG/HR 9.997 mls/hr IV .Q24H GERA Rx#: [id number] Oral 780 240 120 Other: # Voids 2 Weight 172.365 kg 173.1 kg 10/25/23 01:28 10/25/23 06:52 Assessment and Plan Assessment: 1. Paroxysmal Afib. Currently in normal sinus rhythm; echo shows EF 55-60%. Begin flecainide 50mg PO BID for rhythm control. 2. JAYDEN with CPAP. Plan: 1. Begin flecainide 50mg PO BID. 2. Continue telemetry monitoring. 3. Repeat EKG in the AM. 4. Discontinue IV cardizem. Thank you for the consultation. We will continue to follow him during his hospital stay.
[2023-10-25] MEDS: FLECAINIDE 50 MG TAB PO SCH (11:57)
[2023-10-25 12:10] LABS: Chol/HDL Ratio 4.37 Ratio; LDL Cholesterol,Calculated 101.2 mg/dL (0.0-131.0)
--- NOTE | 2023-10-25 13:56 | CA ---
Transthoracic Echo Report Name: Braden Manley Age: 42 Gender: M : 1980 Exam Date: 10/25/2023 09:31 Exam Location: [facility] Ht (in): 72 Wt (lb): 380 Ordering Physician: Omar Shoemaker DO Attending/Referring Phys: Construction Equipment Operator Radha Silverio RDCS Procedure CPT: Indications: a fib Cardiac Hx: Technical Quality: Very technically difficult study Contrast 1: Definity Total Dose (mL): 2 Contrast 2: Total Dose (mL): MEASUREMENTS (Male / Female) Normal Values 2D ECHO LV Diastolic Diameter PLAX 4.0 cm 4.2 - 5.9 / 3.9 - 5.3 cm LV Systolic Diameter PLAX 2.6 cm IVS Diastolic Thickness 1.5 cm 0.6 - 1.0 / 0.6 - 0.9 cm LVPW Diastolic Thickness 1.6 cm 0.6 - 1.0 / 0.6 - 0.9 cm LV Relative Wall Thickness 0.8 RV Internal Dim ED PLAX 3.9 cm LA Volume 65.9 cm??? 18 - 58 / 22 - 52 cm??? LA Volume Index 21.6 cm???/m??? 16 - 28 cm???/m??? M-MODE Aortic Root Diameter MM 4.1 cm LA Systolic Diameter MM 3.7 cm LA Ao Ratio MM 0.9 DOPPLER AV Peak Velocity 156.4 cm/s AV Peak Gradient 9.8 mmHg AV Mean Velocity 112.1 cm/s AV Mean Gradient 5.5 mmHg AV Velocity Time Integral 30.7 cm LVOT Peak Velocity 80.5 cm/s LVOT Peak Gradient 2.6 mmHg LVOT Velocity Time Integral 19.2 cm MV Area PHT 4.6 cm??? Mitral E Point Velocity 102.6 cm/s Mitral A Point Velocity 67.6 cm/s Mitral E to A Ratio 1.5 MV Deceleration Time 164.4 ms MV E' Velocity 7.4 cm/s Mitral E to MV E' Ratio 13.9 TR Peak Velocity 155.0 cm/s TR Peak Gradient 9.6 mmHg Right Ventricular Systolic Press 14.6 mmHg FINDINGS Left Ventricle Moderately increased left ventricular wall thickness. Left ventricular cavity size normal. Normal left ventricular systolic function with no obvious regional wall motion abnormalities. Left ventricular ejection fraction is estimated at 55-60 %. Grade 1 diastolic dysfunction. Right Ventricle Right ventricular dilatation. Right ventricular systolic pressure within normal limits. Right Atrium Right atrium not well visualized. Left Atrium Mildly increased left atrial volume. Mildly increased left atrial area. Mitral Valve Structurally normal mitral valve. No mitral stenosis, regurgitation or prolapse. Aortic Valve Aortic valve not well visualized. No aortic valve stenosis or regurgitation. Tricuspid Valve Structurally normal tricuspid valve. Mild tricuspid regurgitation. Pulmonic Valve Structurally normal pulmonic valve. Pericardium No pericardial effusion. Aorta Normal size aortic root and proximal ascending aorta. CONCLUSIONS Left ventricular ejection fraction 55-60% Mildly dilated left atrium Mild tricuspid regurgitation No pericardial effusion Previewed by: Dr. Konstantin Valenzuela DO (Electronically Signed) Final Date: 25 October 2023 13:55
--- NOTE | 2023-10-25 17:27 | P.PN ---
Subjective Progress Note Date: 10/25/23 Hospital Course: 42-year-old male with history of JAYDEN on CPAP presenting with A-fib RVR. In the ED, temperature 98.3, pulse 123, respiratory 20, blood pressure 119/93, saturating at 97% on room air. WBC 9.4, hemoglobin 16.5, platelet 261, INR 0.9, APTT 26.1, sodium 142, potassium 4.6, creatinine 0.83, magnesium 2, TSH 5.63, free T4 1.23, troponin negative. EKG independently interpreted, atrial fibrillation with RVR. Chest x-ray independently interpreted, shows no opacities. Started on Cardizem drip in the ED, as well as heparin drip. Cardiology consulted. Subjective: Patient seen and examined at bedside. No acute events overnight. Denies any further chest discomfort. Pertinent positives and negatives as discussed above, a complete review of systems was performed and all other systems are negative. Vitals Signs Reviewed. General: Nontoxic, no distress, appears at stated age, morbidly obese Derm: Warm, dry Head: Atraumatic, normocephalic, symmetric Eyes: EOMI, no lid lag, anicteric sclera Mouth: No lip lesion, mucus membranes moist Cardiovascular: S1S2 reg, no murmur Lungs: CTA bilateral, no rhonchi, no rales, no accessory muscle use Abdominal: Soft, nontender to palpation, no guarding, no appreciable organomegaly Ext: No gross muscle atrophy, no edema, no contractures Neuro: CN II-XI grossly intact, no focal neuro deficits Psych: Alert, oriented, appropriate affect Data Reviewed Today: Pertinent Labs: Hemoglobin 14.9, APTT 35.1, potassium 4.2, magnesium 1.9, creatinine 0.86 Imaging: Echocardiogram report reviewed, shows LVEF 55 to 60% EKG independently interpreted from this morning, shows normal sinus rhythm Assessment and Plan: Active: Paroxysmal atrial fibrillation with RVR, now in sinus rhythm -Continue telemetry monitoring -Discussed management with cardiology, discontinued heparin drip, started on flecainide 50 twice daily -CHADSVASc score of 0 JAYDEN -Continue CPAP Tinea corporis -terbinafine 1% topical twice daily Morbid obesity, BMI 51.5 -Outpatient structured weight loss program DVT ppx: Subcu heparin Code status: Full code Anticipated discharge place: Home Anticipated discharge time: Likely tomorrow Objective - Vital Signs Vital signs: Vital Signs Temp 98.0 F 10/25/23 16:00 Pulse 75 10/25/23 16:00 Resp 18 10/25/23 16:00 BP 130/80 10/25/23 16:00 Pulse Ox 99 10/25/23 16:00 FiO2 Intake & Output 10/24/23 10/25/23 10/25/23 18:59 06:59 18:59 Intake Total 540 824.781 120 Balance 540 824.781 120 Weight 172.365 kg 173.1 kg Intake: Intake, IV Titration 344.781 Amount Diltiazem 125 mg In 101.083 Sodium Chloride 0.9% 100 ml @ 5 MG/HR 5 mls/hr IV .Q24H GERA Rx#:[id number] Heparin Sod,Pork in 0.45% 243.698 NaCl 25,000 unit In 0.45 % NaCl 1 250ml.bag @ 5.8 UNITS/KG/HR 9.997 mls/hr IV .Q24H GERA Rx#: [id number] Oral 540 480 120 Other: # Voids 2 - Labs CBC & Chem 7: 10/25/23 01:28 10/25/23 06:52 Labs: Abnormal Lab Results - Last 24 Hours (Table) 10/25/23 10/25/23 10/25/23 Range/Units 01:28 06:52 06:52 APTT 35.1 H 50.2 H (22.0-30.0) sec Chloride 108 H (98-107) mmol/L Glucose 103 H (74-99) mg/dL Triglycerides 157.00 H (0.00-149.00) mg/dL HDL Cholesterol 39.40 L (40.00-60.00) mg/dL
[2023-10-25] MEDS: HEPARIN SODIUM,PORCINE 5,000 UNIT/ML 1 ML VIAL SQ SCH (23:29)
[2023-10-26 09:30] VITALS: RESP 17
[2023-10-26 11:04] VITALS: BP 118/74; PULSE 72; TEMP 97.9
--- NOTE | 2023-10-26 11:19 | P.DS ---
Providers Date of admission: 10/24/23 13:06 Expected date of discharge: 10/26/23 Attending physician: Praveen Hazel MD Discharge Diagnosis: Paroxysmal A-fib with RVR Hospital Course: 42-year-old male with history of JAYDEN on CPAP presenting with A-fib RVR on 10/24/2023. In the ED, temperature 98.3, pulse 123, respiratory 20, blood pressure 119/93, saturating at 97% on room air. WBC 9.4, hemoglobin 16.5, platelet 261, INR 0.9, APTT 26.1, sodium 142, potassium 4.6, creatinine 0.83, magnesium 2, TSH 5.63, free T4 1.23, troponin negative. EKG independently interpreted, atrial fibrillation with RVR. Chest x-ray independently interpreted, shows no opacities. Started on Cardizem drip in the ED, as well as heparin drip. Cardiology consulted. Patient was converted to normal sinus rhythm on Cardizem drip. Patient was started on flecainide 50 mg twice daily p.o. Echocardiogram done 10/25/2023 shows left ventricle ejection fraction of 55 to 60%. EKG done on 10/26/2023 shows normal sinus rhythm with a heart rate of 61 bpm. Patient was feeling back to his normal baseline condition and was discharged home with primary care physician and cardiology follow-up. He was not started on anticoagulation due to low [id number] score. Vital signs reviewed. Gen: in no apparent distress, resting comfortably in bed Eyes: PERRL, no scleral injection or icterus HENT: normocephalic, atraumatic, good hearing acuity, moist mucous membranes Neck: full range of motion Resp: CTAB, no rales, rhonchi, or wheezes CVS: normal S1 and S2, no murmurs, rubs or gallops, no edema GI: soft, NTTP, ND, no hepatosplenomegaly : no suprapubic tenderness, no CVAT, grullon catheter [is/not] present MSK: no clubbing, no cyanosis, no noted contractures of extremities Skin: no noted rashes, petechiae; temperature of skin is appropriate Neuro: moving all extremities without signs of weakness, CN II-XII intact Psych: cooperative, euthymic mood, insight and judgment intact I saw and evaluated the patient during the hauser and critical portions of this encounter, and discussed the case in detail with the resident author of this note, I agree with the Assessment and Plan, and my changes, if any, are highlighted in blue. Consults: 10/24/23 13:05 Consult Physician Urgent Consulting Provider: Kelechi Luevano Consult Reason/Comments: a fib rvr Do you want consulting provider notified?: Yes Primary care physician: Israel Cochran Plan - Discharge Summary Discharge Rx Participant: Yes New Discharge Prescriptions: New Flecainide [Tambocor] 50 mg PO Q12HR 30 Days #60 tab Continue Omeprazole [PriLOSEC] 20 mg PO DAILY PRN PRN Reason: Gi Upset Multivitamins, Thera [Multivitamin (formulary)] 1 tab PO DAILY Celecoxib [CeleBREX] 100 mg PO DAILY Fluconazole [Diflucan] 150 mg PO Q3D Discharge Medication List Celecoxib [CeleBREX] 100 mg PO DAILY 10/24/23 [History] Fluconazole [Diflucan] 150 mg PO Q3D 10/24/23 [History] Multivitamins, Thera [Multivitamin (formulary)] 1 tab PO DAILY 10/24/23 [History] Omeprazole [PriLOSEC] 20 mg PO DAILY PRN 10/24/23 [History] Flecainide [Tambocor] 50 mg PO Q12HR 30 Days #60 tab 10/26/23 [Rx] Follow up Appointment(s)/Referral(s): Sascha Cochran MD [Primary Care Provider] - 1 Week (office will call you with appt time) Tal Purvis MD [STAFF PHYSICIAN] - 1 Week (October 28 3:15) Patient Instructions/Handouts: A-fib (Atrial Fibrillation) (DC) Discharge/Stand Alone Forms: Work/School Release Discharge Disposition: HOME SELF-CARE
--- NOTE | 2023-11-02 17:09 | PN ---
PROGRESS NOTE Braden is a 42-year-old gentleman who is admitted to hospital with paroxysmal atrial fibrillation. He is doing well this morning and is free of symptoms. He remains in sinus rhythm. An EKG shows normal sinus rhythm, normal intervals, and normal axis. An echocardiogram showed normal LV systolic function without any pericardial disease. PHYSICAL EXAMINATION: GENERAL: The patient is comfortable. CHEST: Good air entry bilaterally. HEART: First and second heart sounds. No gallop. No murmur. ABDOMEN: Soft, nontender. EXTREMITIES: Did not reveal any edema. Peripheral pulses are felt. ASSESSMENT AND PLAN: Paroxysmal atrial fibrillation. PLAN: The patient is doing well on flecainide for rhythm suppression. Echocardiogram shows normal LV function. MMODL / IJN: [id number] /
== END 2023-10-26 11:20 | disposition home or self-care (01) ==
LOC: EC 09:47 → 3SCARD 13:06
PROVIDERS: ADMIT Student in an Organized Health Care Education/Training Program; ATTEND Student in an Organized Health Care Education/Training Program
DX: I48.0 Paroxysmal atrial fibrillation (principal); G47.33 Obstructive sleep apnea (adult) (pediatric); B35.4 Tinea corporis; E66.01 Morbid (severe) obesity due to excess calories; Z68.43 Body mass index [BMI] 50.0-59.9, adult; Z79.1 Long term (current) use of non-steroidal anti-inflammatories (NSAID); Z79.899 Other long term (current) drug therapy; Z82.49 Family history of ischemic heart disease and other diseases of the circulatory system
CPT/HCPCS: 36415; 71046; 80048; 80053; 80061; 83735; 84439; 84443; 84481; 84484; 85025; 85610; 85730; 93005; 93306; 94760; 96365; 96366; 96368; 96372; 96376; 99291